=== PATIENT | female | born 2000 | race Caucasian/White ===

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

== ENCOUNTER 2019-04-17 19:51 | Emergency (ER) | payer BC | END 2019-04-17 20:45 | disposition home or self-care (01) | LOC: ERS 19:51 | DX: T78.40XA Allergy, unspecified, initial encounter (principal) | CPT/HCPCS: 99283 ==

== ENCOUNTER 2019-06-09 15:13 | Emergency (ER) | payer BC ==
--- NOTE | 2019-06-09 15:59 | RAD ---
LEFT FOOT 3 VIEWS: Date: 06/09/2019 HISTORY: Injury, laceration. FINDINGS: Postop metal plate and multiple screws stabilizing the medial cuneiform first metatarsal region. Ther e does appear to be some focal soft tissue swelling dorsally at the level of the toes, probably the g reat toe. No acute fracture or dislocation. No evidence for abnormal opaque foreign body. IMPRESSION: 1. Postoperative changes of the medial cuneiform first metacarpal joint region. 2. Soft tissue swelling and injury of the great toe dorsally and medially without fracture or disloc ation or overt opaque foreign body. POS: [facility]
[2019-06-09] MEDS ORDERED: Ketorolac Tromethamine 30 MG/ML VIAL ONE (16:51)
[2019-06-09] MEDS ORDERED: Lidocaine 1% (PF) 30 ML VIAL ONE (17:05)
== END 2019-06-09 17:51 | disposition home or self-care (01) ==
LOC: ERS 15:13
DX: S91.111A Laceration without foreign body of right great toe without damage to nail, initial encounter (principal); F17.210 Nicotine dependence, cigarettes, uncomplicated; Z79.899 Other long term (current) drug therapy; W20.8XXA Other cause of strike by thrown, projected or falling object, initial encounter
CPT/HCPCS: 12001; 96372; J1885; J2001

== ENCOUNTER 2021-12-31 22:08 | Emergency (ER) | payer BC ==
[2021-12-31] MEDS ORDERED: Ondansetron ODT 4 MG TAB ONE (23:35)
[2021-12-31] MEDS ORDERED: Dexamethasone 10 MG/ML VIAL ONE (23:35)
[2021-12-31] MEDS ORDERED: Acetaminophen 500 MG TAB ONE (23:36)
== END 2021-12-31 23:58 | disposition home or self-care (01) ==
LOC: ERS 22:08
DX: B34.9 Viral infection, unspecified (principal); F17.210 Nicotine dependence, cigarettes, uncomplicated
CPT/HCPCS: 96372; 99283; J1100; Q0162

== ENCOUNTER 2023-02-26 21:44 | Emergency (ER) | payer BC | END 2023-02-26 23:45 | disposition home or self-care (01) | LOC: ERS 21:44 | DX: H92.02 Otalgia, left ear (principal); H91.92 Unspecified hearing loss, left ear; H73.92 Unspecified disorder of tympanic membrane, left ear; F17.290 Nicotine dependence, other tobacco product, uncomplicated | CPT/HCPCS: 99282 ==